=== PATIENT | female | born 1995 | race Caucasian/White ===

== ENCOUNTER 2019-03-07 11:24 | Emergency (ER) | payer MEDICAID, OTHER ==
[~2019-03-07] VITALS: Ht 162.6 cm; Wt 83.9 kg
[2019-03-07 11:42] VITALS: BP 122/86
--- NOTE | 2019-03-07 11:58 | NUR ---
PT SENT TO LOBBY. URINE COLLECTED.
--- NOTE | 2019-03-07 12:25 | NUR ---
PATIENT AMBULATED TO BED 7.
--- NOTE | 2019-03-07 12:30 | NUR ---
pt arrvied to ed c/o right flank pain, vomitting, body ache, le x 1 week. temp 100.5. denies dysuria. vss. abd round and soft and nontender. vss. skin is intact and warm to touch. pmh: denies. nka.
[2019-03-07] MEDS ORDERED: NACL 0.9% 1,000 ML IV SCH (12:44)
[2019-03-07] MEDS ORDERED: ONDANSETRON 4 MG/2 ML VIAL IVP ONE (12:45)
[2019-03-07] MEDS ORDERED: KETOROLAC 30 MG/ML VIAL IVP ONE (12:45)
[2019-03-07] MEDS ORDERED: cefTRIAXone 1,000 MG VIAL ONE (13:02)
[2019-03-07 13:12] LABS: BASOPHILS % (AUTO) 0.3 % (0.0-2.0); EOSINOPHILS % (AUTO) 0.2 % (0.0-4.0); HEMATOCRIT 36.5 % (36-48); HEMOGLOBIN 11.9 g/dL (12.0-16.0); LYMPHOCYTES # (AUTO) 0.3 K/uL (2.5-16.5); LYMPHOCYTES % (AUTO) 2.8 % (20.5-51.1); MEAN CORPUSCULAR HEMOGLOBIN 27 pg (27-31); MEAN CORPUSCULAR HGB CONC 33 g/dL (33-37); MEAN CORPUSCULAR VOLUME 83.3 fL (80-94); MONOCYTES # (AUTO) 0.4 K/uL (0.8-1.0); MONOCYTES % (AUTO) 4.4 % (1.7-9.3); NEUTROPHILS # (AUTO) 8.5 K/uL (1.8-7.7); NEUTROPHILS % (AUTO) 92.3 % (42.2-75.2); PLATELET COUNT (AUTO) 207 K/uL (140-450); RED BLOOD CELL COUNT(AUTO) 4.38 MIL/uL (4.20-5.40); RED CELL DISTRIBUTION WIDTH 14.7 % (11.6-13.7); WHITE BLOOD COUNT (AUTO) 9.2 K/uL (4.8-10.8)
[2019-03-07 13:17] LABS: APPEARANCE,URINE SL CLOUDY (CLEAR); BILIRUBIN,URINE 2+ (NEGATIVE); BLOOD, URINE 2+ (NEGATIVE); COLOR,URINE DARK YELLOW (YELLOW); LEUKOCYTE ESTERASE ,URINE 3+ (NEGATIVE); NITRITE, URINE POSITIVE (NEGATIVE); UGLUCOSE NEGATIVE (NEGATIVE)
[2019-03-07 13:20] LABS: ANION GAP 14.9 (8-16); CARBON DIOXIDE 21.5 mmol/L (21-32); CREATININE 0.8 mg/dL (0.6-1.3); POTASSIUM 3.4 mmol/L (3.5-5.1)
[2019-03-07 13:25] LABS: ALBUMIN 2.9 g/dL (3.4-5.0); TOTAL BILIRUBIN 1.4 mg/dL (0.0-1.0)
[2019-03-07 13:33] LABS: WBC,URINE 60-80 /HPF (0-5)
[2019-03-07 15:10] VITALS: BP 122/86
--- NOTE | 2019-03-07 15:10 | NUR ---
Patient discharged with v/s stable. Written and verbal after care instructions given and explained. Patient alert, oriented and verbalized understanding of instructions. Ambulatory with steady gait. All questions addressed prior to discharge. ID band removed. Patient advised to follow up with PMD. Rx of NAPROSYN, ZOFRAN, CEPHAFLEXIN given. Patient educated on indication of medication including possible reaction and side effects. Opportunity to ask questions provided and answered.
--- NOTE | 2019-03-08 08:35 | NUR ---
Late entry. Confirmed with RN that 1000ml 0.9 NS IV completed at 1410
--- NOTE | 2019-03-09 17:32 | NUR ---
Urine cultures received in ER. Results shown to Dr. Sanches with treatment patient was sent home with. Dr. Sanches approves of treatment, no new orders needed.
== END 2019-03-07 15:10 | disposition home or self-care (01) ==
LOC: MED 11:24
DX: N12 Tubulo-interstitial nephritis, not specified as acute or chronic (principal); R00.0 Tachycardia, unspecified; F17.210 Nicotine dependence, cigarettes, uncomplicated; Z71.6 Tobacco abuse counseling
CPT/HCPCS: 36415; 80053; 81001; 81025; 83605; 85025; 87040; 87086; 87186; 96365; 96375; 99283; J0696; J1885; J2405; J7030

== ENCOUNTER 2019-10-02 23:04 | Emergency (ER) | payer MEDICAID ==
[~2019-10-02] VITALS: Ht 162.6 cm; Wt 79.4 kg
[2019-10-02 23:07] VITALS: BP 109/69
--- NOTE | 2019-10-02 23:20 | NUR ---
24 YO F BIB SELF FOR C/C OF 8/10 PELVIC PAIN X5 DAYS THAT RADIATES TO RIGHT SIDE. PT STATES THAT IT FEELS LIKE A DULL PRESSURE THAT COMES AND GOES. PT DENIES TAKING ANY OTC MEDS FOR PAIN. PT STATES THAT SHE HAS SLIGHT VAGINAL DISCHARGE, DENIES ODOR OR ABNORMAL BLEEDING. ABDOMEN IS TENDER UPON PALPATION, BOWEL SOUNDS NORMOACTIVE THROUGHOUT, LBM WAS TODAY-SOFT AND FORMED. PT DENIES TRAVEL, FEVER, COUGH, OR SOB. BED LOCKED AND IN LOWEST POSITION. SIDE RAILS X1. NO RX NO MED HX NKA
--- NOTE | 2019-10-02 23:23 | NUR ---
PT TAKEN TO BED 11
--- NOTE | 2019-10-02 23:23 | NUR ---
PT IS AAOX4, AMBULATORY TO ED AND C/O ABDOMINAL PAIN. PT WILL GOWN AND HOOK ON MONITOR. UA CAP GIVEN FOR UA SAMPLE. COLD ICE WATER GIVEN/TAKEN.
[2019-10-02 23:48] LABS: BASOPHILS % (AUTO) 0.2 % (0.0-2.0); EOSINOPHILS # (AUTO) 0.3 K/uL (0-0.4); EOSINOPHILS % (AUTO) 2.2 % (0.0-4.0); HEMATOCRIT 40.9 % (36-48); HEMOGLOBIN 13.5 g/dL (12.0-16.0); LYMPHOCYTES # (AUTO) 1.3 K/uL (2.5-16.5); LYMPHOCYTES % (AUTO) 9.3 % (20.5-51.1); MEAN CORPUSCULAR HEMOGLOBIN 27 pg (27-31); MEAN CORPUSCULAR HGB CONC 33 g/dL (33-37); MEAN CORPUSCULAR VOLUME 82.8 fL (80-94); MONOCYTES # (AUTO) 0.5 K/uL (0.8-1.0); MONOCYTES % (AUTO) 3.7 % (1.7-9.3); NEUTROPHILS # (AUTO) 12.1 K/uL (1.8-7.7); NEUTROPHILS % (AUTO) 84.6 % (42.2-75.2); PLATELET COUNT (AUTO) 322 K/uL (140-450); RED BLOOD CELL COUNT(AUTO) 4.94 MIL/uL (4.20-5.40); RED CELL DISTRIBUTION WIDTH 15.2 % (11.6-13.7); WHITE BLOOD COUNT (AUTO) 14.2 K/uL (4.8-10.8)
[2019-10-03] MEDS: NACL 0.9% 1,000 ML IV ONE ×2 (00:01→00:19)
[2019-10-03 00:02] LABS: ALBUMIN 4.1 g/dL (3.4-5.0); ANION GAP 12.2 (8-16); CARBON DIOXIDE 27.5 mmol/L (21-32); CREATININE 0.9 mg/dL (0.6-1.3); POTASSIUM 3.7 mmol/L (3.5-5.1); TOTAL BILIRUBIN 0.5 mg/dL (0.0-1.0)
[2019-10-03] MEDS: ONDANSETRON 4 MG/2 ML VIAL IVP ONE ×2 (00:02→00:25)
[2019-10-03] MEDS: MORPHINE SULFATE 4 MG/ML SYR IVP ONE ×2 (00:03→00:24)
--- NOTE | 2019-10-03 00:10 | NUR ---
CHAPERONED WHILE DR. RAYMOND, PERFORMED PELVIC EXAM. PT TOLERATED PROCEDURE WELL.
[2019-10-03 00:22] LABS: APPEARANCE,URINE SL CLOUDY (CLEAR); BILIRUBIN,URINE NEGATIVE (NEGATIVE); BLOOD, URINE TRACE-I (NEGATIVE); COLOR,URINE YELLOW (YELLOW); LEUKOCYTE ESTERASE ,URINE NEGATIVE (NEGATIVE); NITRITE, URINE NEGATIVE (NEGATIVE); PH,URINE >=9.0 (5.0-9.0); UGLUCOSE NEGATIVE (NEGATIVE)
[2019-10-03 00:32] LABS: WBC,URINE 0-5 /HPF (0-5)
--- NOTE | 2019-10-03 00:35 | NUR ---
PT TAKEN TO CT VIA WHEELCHAIR
--- NOTE | 2019-10-03 00:47 | NUR ---
PT RETURN FROM CT
--- NOTE | 2019-10-03 00:48 | NUR ---
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 PT REQUESTED JUICE BUT WAS INFORMED THAT SHE WILL BE NPO UNTIL CT RESULTS COME BACK. PT RESTING IN BED COMFORTABLY. EQUAL CHEST RISE AND FALL. SAFETY MEASURES IN PLACE.
[2019-10-03] MEDS ORDERED: KETOROLAC 30 MG/ML VIAL IVP ONE (01:40)
[2019-10-03] MEDS ORDERED: DOXYCYCLINE 100 MG CAP PO SCH (01:50)
[2019-10-03] MEDS ORDERED: HYDROcodone/APAP 5/325 MG 1 TAB TAB PO ONE (01:50)
[2019-10-03] MEDS ORDERED: cefTRIAXone 250 MG VIAL ONE (01:53)
[2019-10-03] MEDS ORDERED: MAGNESIUM CITRATE 300 ML BTL PO ONE (02:00)
--- NOTE | 2019-10-03 02:12 | NUR ---
pt ambulated to rr
--- NOTE | 2019-10-03 02:16 | NUR ---
PT RETURNED FROM RR. 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 IVPB CONTINUED.
--- NOTE | 2019-10-03 02:17 | NUR ---
PT STATES HER 8/10 PAIN HAS REDUCED TO 5/10.
[2019-10-03 02:42] VITALS: BP 110/59
--- NOTE | 2019-10-03 02:42 | NUR ---
Patient discharged with v/s stable. Written and verbal after care instructions given and explained. Patient alert, oriented and verbalized understanding of instructions. Ambulatory with steady gait. All questions addressed prior to discharge. ID band removed. Patient advised to follow up with PMD. Rx of FLAGYL, MOTRIN, DOXYCYCLINE, NORCO given. Patient educated on indication of medication including possible reaction and side effects. Opportunity to ask questions provided and answered.
[2019-10-04 10:57] LABS: RAPID PLASMA REAGIN NON-REACTIVE (Non Reactiv)
[2019-10-05 06:07] LABS: CHLAMYDIA TRACHOMATIS AMP DNA Positive (Negative)
--- NOTE | 2019-10-05 09:20 | NUR ---
RECEIVED POSITIVE CHLAMYDIA AND GONORRHEA RESULTS. LAB WILL FAX OVER COPY.
--- NOTE | 2019-10-05 09:46 | NUR ---
COPY OF RESULTS PLACED IN INFECTION CONTROL MAIL BOX.
== END 2019-10-03 02:42 | disposition home or self-care (01) ==
LOC: MED 23:04
DX: N83.209 Unspecified ovarian cyst, unspecified side (principal)
CPT/HCPCS: 36415; 74177; 80053; 81001; 81025; 85025; 86592; 86703; 87491; 96365; 96374; 96375; 99285; J0696; J1885; J2270; J2405; J7030; Q9967; 99284

== ENCOUNTER 2021-01-24 17:47 | Emergency (ER) | payer MEDICAID ==
[~2021-01-24] VITALS: Ht 162.6 cm; Wt 81.6 kg
[2021-01-24 17:58] VITALS: BP 122/83
[2021-01-24] MEDS ORDERED: LOTC TP (19:22)
--- NOTE | 2021-01-24 19:55 | NUR ---
PT UP FOR DISCHARGE AND LEFT WITHOUT INSTRUCTIONS OR RX.
== END 2021-01-24 19:55 | disposition home or self-care (01) ==
LOC: MED 17:47
DX: R21 Rash and other nonspecific skin eruption (principal); Z79.899 Other long term (current) drug therapy
CPT/HCPCS: 99282

== ENCOUNTER 2023-02-05 07:31 | Emergency (ER) | payer MEDICAID ==
[~2023-02-05] VITALS: Ht 162.6 cm; Wt 79.4 kg
[~2023-02-05 07:31] MED LIST: LOTC TP
[2023-02-05 07:33] VITALS: BP 125/97; PULSE 104; RESP 18; TEMP 98; O2SAT 99
[2023-02-05 07:35] VITALS: O2SAT 98
[2023-02-05 07:37] VITALS: TEMP 98
[2023-02-05] MEDS ORDERED: oxyCODONE/APAP 5/325 MG 1 TAB TAB PO ONE (07:50)
[2023-02-05] MEDS ORDERED: IBUP-1842 PO (08:46)
[2023-02-05] MEDS ORDERED: ACET-10509 PO (08:46)
[2023-02-05 09:08] VITALS: BP 118/88; PULSE 88; RESP 18; O2SAT 98
== END 2023-02-05 09:07 | disposition home or self-care (01) ==
LOC: MED 07:31
DX: M25.562 Pain in left knee (principal); Z79.899 Other long term (current) drug therapy
CPT/HCPCS: 29505; 73562; 73590; 81025; 99284